=== PATIENT | male | born 1960 | race Caucasian/White ===

== ENCOUNTER 2021-06-22 18:18 | Inpatient (IN) | payer MEDICAID ==
[~2021-06-22] VITALS: Ht 182.9 cm; Wt 96.0 kg
[2021-06-22 18:52] LABS: BASOPHILS # (AUTO) 0.1 X10'3 (0-0.2); BASOPHILS % (AUTO) 0.8 % (0-1); EOSINOPHILS # (AUTO) 0.1 X10'3 (0-0.9); EOSINOPHILS % (AUTO) 0.9 % (0-6); HEMOGLOBIN 11.2 g/dl (14.0-17.9); LYMPHOCYTES # (AUTO) 0.8 X10'3 (1.1-4.8); LYMPHOCYTES % (AUTO) 11.2 % (21-51); MEAN CORPUSCULAR HEMOGLOBIN 28.7 PG (27.0-31.0); MEAN CORPUSCULAR HGB CONC 32.9 g/dL (33.0-36.5); MEAN CORPUSCULAR VOLUME 87.2 FL (78-98); MEAN PLATELET VOLUME 7.7 FL (7.4-10.4); MONOCYTES # (AUTO) 0.5 X10'3 (0-0.9); MONOCYTES % (AUTO) 7.3 % (2-12); NEUTROPHILS # (AUTO) 5.9 X10'3 (1.8-7.7); NEUTROPHILS % (AUTO) 79.8 % (42-75); PLATELET COUNT 227 X10'3 (140-440); RED CELL DISTRIBUTION WIDTH 14.8 % (11.5-14.5); WHITE BLOOD COUNT 7.4 X10'3 (4.5-11.0)
[2021-06-22 19:09] LABS: ALANINE AMINOTRANSFERASE 46 U/L (12-78); ALBUMIN 2.7 G/DL (3.4-5.0); ALBUMIN/GLOBULIN RATIO 0.6 (1.1-1.5); ALKALINE PHOSPHATASE 168 IU/L (46-116); ANION GAP 10 (8-16); ASPARTATE AMINO TRANSFERASE 21 U/L (10-37); BILIRUBIN,TOTAL 0.8 MG/DL (0.1-1.0); BLOOD UREA NITROGEN 10 MG/DL (7-18); BUN/CREATININE RATIO 8.5 (5.4-32.0); CALCIUM 8.7 MG/DL (8.5-10.1); CHLORIDE 102 MMOL/L (99-107); CREATININE 1.18 MG/DL (0.60-1.10); GLUCOSE 152 MG/DL (70-104); POTASSIUM 4.5 MMOL/L (3.5-5.1); SODIUM 138 MMOL/L (135-145); TOTAL CARBON DIOXIDE 26.1 MMOL/L (24-32); TOTAL PROTEIN 7.2 G/DL (6.4-8.2); eGFR 62 ML/MIN
[2021-06-22] MEDS ORDERED: temazepam 15mg capsule PO PRN (21:00)
[2021-06-22] MEDS ORDERED: magnesium hydroxide 30ml (MOM) UD suspension PO PRN (23:45)
[2021-06-22] MEDS ORDERED: mag hydrox/Alum hydrox/simeth 30ml oral suspension PO PRN (23:45)
[2021-06-22] MEDS ORDERED: ondansetron 4mg rapidly disintigrating tab PO PRN (23:45)
[2021-06-22] MEDS ORDERED: bisacodyl 10mg suppository rectal RC PRN (23:45)
[2021-06-22] MEDS ORDERED: acetaminophen 650mg rectal suppository RC PRN (23:45)
[2021-06-22] MEDS ORDERED: HYDROcodone/acetaminophen 5mg/325mg tablet PO PRN (23:45)
[2021-06-22] MEDS ORDERED: ondansetron/PF 4mg/2ml inj IV PRN (23:45)
[2021-06-22] MEDS ORDERED: diphenhydrAMINE 50 mg/ml inj IV PRN (23:45)
[2021-06-22] MEDS ORDERED: acetaminophen 325mg tablet PO PRN ×2 (23:45)
[2021-06-22] MEDS ORDERED: diphenhydrAMINE 25mg capsule PO PRN (23:45)
[2021-06-22] MEDS ORDERED: morphine 2 MG/ML inj. syringe IV PRN ×2 (23:45)
[2021-06-22] MEDS ORDERED: normal saline 1000ml 1,000 ML IV SCH (23:45)
[2021-06-22] MEDS ORDERED: nicotine 21mg patch - 24 hr TD ONE (23:50)
[2021-06-23] MEDS ORDERED: piperacillin/tazo 3.375gm/50ml 50 ML IV SCH
[2021-06-23] MEDS ORDERED: MESSAGE TO PHARMACY PO ONE
[2021-06-23] MEDS ORDERED: glucagon, human recombinant 1mg kit SUBCUT PRN
[2021-06-23] MEDS ORDERED: dextrose 50%-water 50ml dispensing syringe IV PRN ×2
[2021-06-23] MEDS ORDERED: DEXTROSE 15 GM of carb/4 tabs (each vial/BOTTLE has 4 tablets) PO PRN ×2
[2021-06-23 00:12] LABS: HEMOGLOBIN A1C 10.3 % (4.5-6.2)
[2021-06-23 00:19] LABS: MAGNESIUM 1.8 MG/DL (1.5-2.4); PHOSPHORUS 2.9 MG/DL (2.3-4.5)
[2021-06-23 00:39] LABS: APTT 27 SECONDS (22-32)
[2021-06-23 00:48] LABS: C-REACTIVE PROTEIN 6.07 MG/DL (0.0-0.5); CREATINE KINASE 41 U/L (39-308)
[2021-06-23] MEDS ORDERED: aspirin 325mg tablet PO ONE (01:05)
[2021-06-23] MEDS ORDERED: heparin 10,000 units/1 ML INJ IV ONE (01:05)
[2021-06-23 01:10] LABS: URINE AMPHETAMINE SCREEN POSITIVE (Neg); URINE BARBITUATE SCREEN NEGATIVE (Neg); URINE BENZODIAZEPINES SCREEN NEGATIVE (Neg); URINE CANNABINOID SCREEN POSITIVE (Neg); URINE COCAINE SCREEN NEGATIVE (Neg); URINE METHADONE SCREEN NEGATIVE (Neg); URINE OPIATE SCREEN NEGATIVE (Neg); URINE PHENCYCLIDINE SCREEN NEGATIVE (Neg)
[2021-06-23 01:14] LABS: CLARITY,URINE CLEAR (Clear); COLOR,URINE YELLOW (Yellow); GLUCOSE, URINE NEGATIVE (Neg); KETONES,URINE NEGATIVE (Neg); LEUKOCYTE ESTERASE ,URINE NEGATIVE (Neg); NITRITES, URINE NEGATIVE (Neg); OCCULT BLOOD,URINE NEGATIVE (Neg); PROTEIN,URINE NEGATIVE (Neg)
[2021-06-23 01:16] LABS: UA COLLECTION TYPE NON-SPECIFIED
[2021-06-23] MEDS: heparin 25,000 UNIT/250ml bag 250 ML IV SCH ×3 (01:21→22:02)
[2021-06-23 01:55] LABS: BASOPHILS % (AUTO) 0.5 % (0-1); EOSINOPHILS # (AUTO) 0.1 X10'3 (0-0.9); HEMATOCRIT 32.1 % (42.0-52.0); HEMOGLOBIN 10.7 g/dl (14.0-17.9); LYMPHOCYTES # (AUTO) 0.9 X10'3 (1.1-4.8); LYMPHOCYTES % (AUTO) 12.7 % (21-51); MEAN CORPUSCULAR HEMOGLOBIN 29.4 PG (27.0-31.0); MEAN CORPUSCULAR HGB CONC 33.4 g/dL (33.0-36.5); MONOCYTES # (AUTO) 0.6 X10'3 (0-0.9); MONOCYTES % (AUTO) 7.8 % (2-12); NEUTROPHILS # (AUTO) 5.6 X10'3 (1.8-7.7); PLATELET COUNT 214 X10'3 (140-440); RED BLOOD COUNT 3.65 X10'6 (4.70-6.10); RED CELL DISTRIBUTION WIDTH 14.6 % (11.5-14.5); WHITE BLOOD COUNT 7.2 X10'3 (4.5-11.0)
[2021-06-23 02:14] LABS: ALANINE AMINOTRANSFERASE 41 U/L (12-78); ALBUMIN 2.5 G/DL (3.4-5.0); ALBUMIN/GLOBULIN RATIO 0.6 (1.1-1.5); ALKALINE PHOSPHATASE 159 IU/L (46-116); ANION GAP 9 (8-16); ASPARTATE AMINO TRANSFERASE 20 U/L (10-37); BILIRUBIN,TOTAL 0.6 MG/DL (0.1-1.0); BLOOD UREA NITROGEN 12 MG/DL (7-18); CALCIUM 8.5 MG/DL (8.5-10.1); CHLORIDE 102 MMOL/L (99-107); CHOL/HDL RATIO 5.6 (0.00-4.99); CHOLESTEROL 139 MG/DL (0-200); GLUCOSE 185 MG/DL (70-104); HDL CHOLESTEROL 25 MG/DL (35-60); LDL CHOLESTEROL 102 MG/DL (50-100); POTASSIUM 4.4 MMOL/L (3.5-5.1); SODIUM 137 MMOL/L (135-145); TOTAL CARBON DIOXIDE 25.6 MMOL/L (24-32); TOTAL PROTEIN 6.8 G/DL (6.4-8.2); TRIGLYCERIDES 63 MG/DL (20-135); eGFR 61 ML/MIN
[2021-06-23] MEDS ORDERED: GABA300C PO (03:41)
[2021-06-23] MEDS ORDERED: LIRA0.6P2 SQ (03:41)
[2021-06-23] MEDS ORDERED: LANTUS SQ (03:41)
[2021-06-23] MEDS ORDERED: PREG100C PO (03:41)
[2021-06-23] MEDS ORDERED: METF-436 PO (03:41)
[2021-06-23] MEDS: VANCOmycin 1250MG/NS 250ml Bag 250 ML IV SCH ×2 (04:57→20:09)
--- NOTE | 2021-06-23 05:05 | NUR ---
Patient in room ED 2. to be admitted to 3013A, I have received report from Selina and had the opportunity to ask questions and assume patient care.Pt on Heparin drip at 1000Units/hr, for elevated Troponin.
[2021-06-23 05:30] VITALS: BP 124/71
[2021-06-23 06:00] VITALS: BP 122/74
[2021-06-23] MEDS ORDERED: pantoprazole 40mg Tablet.DR PO SCH (07:30)
[2021-06-23] MEDS ORDERED: CLINDAMYCIN 300mg/NS 50ml IVPB 50 ML IV SCH (08:00)
[2021-06-23] MEDS ORDERED: heparin, porcine 5000 units/ml vial SQ SCH (08:00)
[2021-06-23] MEDS ORDERED: atorvastatin 20mg tablet PO SCH (08:00)
[2021-06-23] MEDS: lisinopril 2.5mg tablet PO SCH (09:39)
[2021-06-23] MEDS: aspirin 81mg tab.chew PO SCH (09:39)
[2021-06-23] MEDS: nitroGLYCERIN 0.1mg/hour patch TD SCH (09:40)
[2021-06-23] MEDS: pantoprazole 40mg Tablet.DR PO SCH (09:40)
[2021-06-23] MEDS: docusate sod 100mg capsule PO SCH ×2 (09:41→20:11)
[2021-06-23] MEDS: piperacillin/tazo 3.375gm/50ml 50 ML IV SCH ×2 (09:42→16:27)
--- NOTE | 2021-06-23 10:17 | NUR ---
Patient's bg is 189 but currently NPO for possible procedure, will hold insulin dose. Due for re-check at noon.
[2021-06-23 11:00] VITALS: BP 122/69
[2021-06-23] MEDS: pregabalin 75mg capsule PO SCH ×2 (13:10→20:10)
[2021-06-23] MEDS: pregabalin 25mg capsule PO SCH ×2 (13:10→20:10)
[2021-06-23] MEDS: metoprolol tartrate 25mg tablet PO SCH ×2 (13:11→20:00)
[2021-06-23] MEDS: heparin 10,000 units/1 ML INJ IV PRN ×2 (13:13→20:35)
[2021-06-23] MEDS: insulin Lispro (HumaLOG) vial - multi-dose SQ SCH (13:26)
--- NOTE | 2021-06-23 14:13 | NUR ---
WOUND INFECTION EDUCATION PROVIDED BY WOUND CARE 1. Patient instructed to call their primary doctor, or go the ED immediately if any of the following symptoms occur: * Increased pain in wound * Increase in drainage from the wound * Redness in the skin surrounding the wound * Warmth in the skin surrounding the wound * Bleeding from the wound * Temperature of 101 or greater 2. If any of these occur while in the hospital tell a nurse immediately. Addendum: 06/23/21 at 1414 by Sol Koroma RN Amended: Links added.
[2021-06-23 15:00] VITALS: BP 118/64
[2021-06-23] MEDS: gabapentin 300mg capsule PO SCH (16:29)
--- NOTE | 2021-06-23 16:30 | NUR ---
DM consult: Pt w/ hx DM2, A1c 10.3 per EMR. Pt seen by sports management intern at bedside and provided written and verbal DM education. Pt was receptive to DM education, stating he doesn't follow a special diet at home, however is willing to eat more vegetables. Pt did not have any questions. RD contact information provided. Will continue to follow. Addendum: 06/23/21 at 1630 by Ruby Simpson Roll Changer RD Amended: Links added. Addendum: 06/23/21 at [address] I have reviewed and agree with note by Roll Changer. ESTEE Ramirez
[2021-06-23 18:00] VITALS: BP 99/54
[2021-06-23] MEDS: furosemide 20 MG/2 ML vial IV SCH (20:00)
[2021-06-23] MEDS: insulin glargine (Lantus) pen - multi-dose SQ SCH (21:45)
[2021-06-23 22:00] VITALS: BP 108/71
[2021-06-24] MEDS: piperacillin/tazo 3.375gm/50ml 50 ML IV SCH (00:11)
[2021-06-24] MEDS: gabapentin 300mg capsule PO SCH ×3 (00:11→17:20)
[2021-06-24 02:00] VITALS: BP 145/72
[2021-06-24] MEDS ORDERED: VANCOMYCIN LEVEL IV ONE (02:30)
[2021-06-24 04:01] LABS: ALANINE AMINOTRANSFERASE 35 U/L (12-78); ALBUMIN 2.6 G/DL (3.4-5.0); ALBUMIN/GLOBULIN RATIO 0.7 (1.1-1.5); ALKALINE PHOSPHATASE 169 IU/L (46-116); ANION GAP 12 (8-16); ASPARTATE AMINO TRANSFERASE 16 U/L (10-37); BILIRUBIN,TOTAL 0.8 MG/DL (0.1-1.0); BLOOD UREA NITROGEN 15 MG/DL (7-18); BUN/CREATININE RATIO 10.9 (5.4-32.0); CALCIUM 8.2 MG/DL (8.5-10.1); CHLORIDE 103 MMOL/L (99-107); CREATININE 1.37 MG/DL (0.60-1.10); GLUCOSE 166 MG/DL (70-104); POTASSIUM 4.6 MMOL/L (3.5-5.1); SODIUM 139 MMOL/L (135-145); TOTAL CARBON DIOXIDE 24.3 MMOL/L (24-32); TOTAL PROTEIN 6.5 G/DL (6.4-8.2); VANCOMYCIN,TROUGH 19.3 UG/ML (6.0-14.0); eGFR 52 ML/MIN
[2021-06-24] MEDS: VANCOmycin 1250MG/NS 250ml Bag 250 ML IV SCH (04:09)
[2021-06-24 06:00] VITALS: BP 113/56
[2021-06-24 07:01] LABS: BASOPHILS % (AUTO) 0.5 % (0-1); EOSINOPHILS # (AUTO) 0.1 X10'3 (0-0.9); EOSINOPHILS % (AUTO) 0.7 % (0-6); HEMATOCRIT 31.7 % (42.0-52.0); HEMOGLOBIN 10.5 g/dl (14.0-17.9); LYMPHOCYTES # (AUTO) 1.5 X10'3 (1.1-4.8); LYMPHOCYTES % (AUTO) 18.3 % (21-51); MEAN CORPUSCULAR HEMOGLOBIN 29.3 PG (27.0-31.0); MEAN CORPUSCULAR VOLUME 88.6 FL (78-98); MEAN PLATELET VOLUME 8.5 FL (7.4-10.4); MONOCYTES # (AUTO) 0.6 X10'3 (0-0.9); MONOCYTES % (AUTO) 6.8 % (2-12); NEUTROPHILS % (AUTO) 73.7 % (42-75); PLATELET COUNT 206 X10'3 (140-440); RED BLOOD COUNT 3.57 X10'6 (4.70-6.10); RED CELL DISTRIBUTION WIDTH 14.9 % (11.5-14.5); WHITE BLOOD COUNT 8.1 X10'3 (4.5-11.0)
--- NOTE | 2021-06-24 08:47 | NUR ---
DM consult: Patient's A1c has already been addressed, see below. DM consult: Pt w/ hx DM2, A1c 10.3 per EMR. Pt seen by risk management internship at bedside and provided written and verbal DM education. Pt was receptive to DM education, stating he doesn't follow a special diet at home, however is willing to eat more vegetables. Pt did not have any questions. RD contact information provided. Will continue to follow. Addendum: 06/24/21 at [address] Amended: Links added.
[2021-06-24] MEDS: pregabalin 25mg capsule PO SCH ×3 (09:02→20:56)
[2021-06-24] MEDS: nitroGLYCERIN 0.1mg/hour patch TD SCH (09:02)
[2021-06-24] MEDS: pregabalin 75mg capsule PO SCH ×3 (09:02→20:56)
[2021-06-24] MEDS: metroNIDAZOLE 500mg tablet PO SCH ×2 (09:03→17:20)
[2021-06-24] MEDS: docusate sod 100mg capsule PO SCH ×2 (09:03→20:57)
[2021-06-24] MEDS: aspirin 81mg tab.chew PO SCH (09:03)
[2021-06-24] MEDS: lisinopril 2.5mg tablet PO SCH (09:03)
[2021-06-24] MEDS: pantoprazole 40mg Tablet.DR PO SCH (09:03)
[2021-06-24] MEDS: apixaban 5mg tablet PO SCH ×2 (09:03→20:57)
[2021-06-24] MEDS: clopidogrel 75mg tablet PO SCH (09:03)
[2021-06-24] MEDS: atorvastatin 20mg tablet PO SCH (09:04)
[2021-06-24] MEDS: furosemide 20 MG/2 ML vial IV SCH ×2 (09:04→20:00)
[2021-06-24] MEDS: metoprolol tartrate 25mg tablet PO SCH ×2 (09:04→20:00)
[2021-06-24] MEDS: HYDROcodone/acetaminophen 10/325mg tab PO PRN (10:30)
[2021-06-24] MEDS: levoFLOXACIN 500mg tablet PO SCH (10:30)
[2021-06-24] MEDS: insulin Lispro (HumaLOG) vial - multi-dose SQ SCH (14:21)
[2021-06-24 15:00] VITALS: BP 82/53
[2021-06-24 19:41] VITALS: BP 93/53
[2021-06-24] MEDS: insulin glargine (Lantus) pen - multi-dose SQ SCH (21:28)
[2021-06-24 22:00] VITALS: BP 116/68
[2021-06-25] MEDS: gabapentin 300mg capsule PO SCH ×4 (00:32→23:26)
[2021-06-25] MEDS: metroNIDAZOLE 500mg tablet PO SCH ×4 (00:32→23:26)
[2021-06-25 02:00] VITALS: BP 109/66
[2021-06-25 06:00] VITALS: BP 115/71
[2021-06-25 07:38] LABS: BASOPHILS % (AUTO) 0.4 % (0-1); EOSINOPHILS # (AUTO) 0.1 X10'3 (0-0.9); EOSINOPHILS % (AUTO) 0.7 % (0-6); HEMATOCRIT 33.3 % (42.0-52.0); MEAN CORPUSCULAR HEMOGLOBIN 28.7 PG (27.0-31.0); MEAN CORPUSCULAR HGB CONC 33.1 g/dL (33.0-36.5); MEAN CORPUSCULAR VOLUME 86.8 FL (78-98); MEAN PLATELET VOLUME 7.9 FL (7.4-10.4); MONOCYTES # (AUTO) 0.7 X10'3 (0-0.9); MONOCYTES % (AUTO) 7.8 % (2-12); NEUTROPHILS # (AUTO) 6.7 X10'3 (1.8-7.7); NEUTROPHILS % (AUTO) 79.1 % (42-75); PLATELET COUNT 227 X10'3 (140-440); RED BLOOD COUNT 3.84 X10'6 (4.70-6.10); RED CELL DISTRIBUTION WIDTH 14.6 % (11.5-14.5); WHITE BLOOD COUNT 8.5 X10'3 (4.5-11.0)
[2021-06-25 08:18] LABS: ALANINE AMINOTRANSFERASE 25 U/L (12-78); ALBUMIN 2.3 G/DL (3.4-5.0); ALBUMIN/GLOBULIN RATIO 0.5 (1.1-1.5); ALKALINE PHOSPHATASE 141 IU/L (46-116); ANION GAP 11 (8-16); ASPARTATE AMINO TRANSFERASE 13 U/L (10-37); BILIRUBIN,TOTAL 0.7 MG/DL (0.1-1.0); BLOOD UREA NITROGEN 17 MG/DL (7-18); BUN/CREATININE RATIO 13.5 (5.4-32.0); CALCIUM 8.7 MG/DL (8.5-10.1); CHLORIDE 104 MMOL/L (99-107); CREATININE 1.26 MG/DL (0.60-1.10); GLUCOSE 94 MG/DL (70-104); SODIUM 140 MMOL/L (135-145); TOTAL CARBON DIOXIDE 25.1 MMOL/L (24-32); TOTAL PROTEIN 6.8 G/DL (6.4-8.2); eGFR 58 ML/MIN
[2021-06-25] MEDS: furosemide 20 MG/2 ML vial IV SCH ×2 (08:28→20:00)
[2021-06-25] MEDS: nitroGLYCERIN 0.1mg/hour patch TD SCH (08:28)
[2021-06-25] MEDS: atorvastatin 20mg tablet PO SCH (08:29)
[2021-06-25] MEDS: lisinopril 2.5mg tablet PO SCH (08:29)
[2021-06-25] MEDS: aspirin 81mg tab.chew PO SCH (08:29)
[2021-06-25] MEDS: metoprolol tartrate 25mg tablet PO SCH ×2 (08:29→20:00)
[2021-06-25] MEDS: apixaban 5mg tablet PO SCH ×2 (08:30→12:29)
[2021-06-25] MEDS: clopidogrel 75mg tablet PO SCH (08:30)
[2021-06-25] MEDS: pregabalin 25mg capsule PO SCH ×3 (08:30→20:52)
[2021-06-25] MEDS: pregabalin 75mg capsule PO SCH ×3 (08:30→20:52)
[2021-06-25] MEDS: pantoprazole 40mg Tablet.DR PO SCH (08:30)
[2021-06-25] MEDS: docusate sod 100mg capsule PO SCH ×2 (08:30→20:51)
[2021-06-25] MEDS: insulin Lispro (HumaLOG) vial - multi-dose SQ SCH ×2 (08:44→14:06)
[2021-06-25] MEDS ORDERED: ASPI81TA53 PO (09:40)
[2021-06-25] MEDS ORDERED: APIX5TAB3 PO (09:40)
[2021-06-25] MEDS ORDERED: LOP25T PO (09:40)
[2021-06-25] MEDS ORDERED: ATOR20TA66 PO (09:40)
[2021-06-25] MEDS ORDERED: FURO-150 PO (09:40)
[2021-06-25] MEDS ORDERED: CLOP75TA34 PO (09:40)
[2021-06-25] MEDS ORDERED: LISI2.5T14 PO (09:40)
[2021-06-25] MEDS ORDERED: HYDR-3972 PO (09:40)
[2021-06-25] MEDS ORDERED: METR-159 PO (09:40)
[2021-06-25] MEDS ORDERED: LEVO500T90 PO (09:40)
[2021-06-25 11:00] VITALS: BP 108/62
[2021-06-25] MEDS: levoFLOXACIN 500mg tablet PO SCH (12:47)
[2021-06-25] MEDS: HYDROcodone/acetaminophen 10/325mg tab PO PRN (14:14)
[2021-06-25 15:00] VITALS: BP 106/68
--- NOTE | 2021-06-25 17:30 | NUR ---
Mr Kellogg has been assessed as indicated. He was successfully treated for pain x1 this shift. He had a kika neuro consult this shift. a condom cath was placed and he also had periods of incontinence of urine. He was visited by his and hi daughter also called today. He is presently resting quietly Addendum: 06/25/21 at 1907 by Trang Lamar RN a conom cath was not placed for Mr Kellogg. he has elected to have surgery to right Right great toe tomorrow.
[2021-06-25 18:00] VITALS: BP 95/52
--- NOTE | 2021-06-25 18:15 | NUR ---
Problems reprioritized. Patient report given, questions answered & plan of care reviewed with MYRNA .
[2021-06-25] MEDS: insulin glargine (Lantus) pen - multi-dose SQ SCH (21:33)
[2021-06-26 00:06] VITALS: BP 109/59
[2021-06-26 02:00] VITALS: BP 118/65
[2021-06-26 06:00] VITALS: BP 108/68
[2021-06-26 06:24] LABS: BASOPHILS % (AUTO) 0.2 % (0-1); EOSINOPHILS # (AUTO) 0.1 X10'3 (0-0.9); EOSINOPHILS % (AUTO) 0.7 % (0-6); HEMATOCRIT 33.2 % (42.0-52.0); HEMOGLOBIN 10.9 g/dl (14.0-17.9); LYMPHOCYTES % (AUTO) 12.8 % (21-51); MEAN CORPUSCULAR HEMOGLOBIN 28.5 PG (27.0-31.0); MEAN CORPUSCULAR HGB CONC 32.9 g/dL (33.0-36.5); MEAN CORPUSCULAR VOLUME 86.5 FL (78-98); MEAN PLATELET VOLUME 7.6 FL (7.4-10.4); MONOCYTES # (AUTO) 0.7 X10'3 (0-0.9); MONOCYTES % (AUTO) 8.9 % (2-12); NEUTROPHILS # (AUTO) 6.1 X10'3 (1.8-7.7); NEUTROPHILS % (AUTO) 77.4 % (42-75); PLATELET COUNT 226 X10'3 (140-440); RED BLOOD COUNT 3.83 X10'6 (4.70-6.10); RED CELL DISTRIBUTION WIDTH 14.9 % (11.5-14.5); WHITE BLOOD COUNT 7.9 X10'3 (4.5-11.0)
[2021-06-26 06:44] LABS: ALANINE AMINOTRANSFERASE 22 U/L (12-78); ALBUMIN 2.3 G/DL (3.4-5.0); ALBUMIN/GLOBULIN RATIO 0.5 (1.1-1.5); ALKALINE PHOSPHATASE 150 IU/L (46-116); ANION GAP 12 (8-16); ASPARTATE AMINO TRANSFERASE 17 U/L (10-37); BILIRUBIN,TOTAL 0.6 MG/DL (0.1-1.0); BLOOD UREA NITROGEN 16 MG/DL (7-18); CALCIUM 8.4 MG/DL (8.5-10.1); CHLORIDE 102 MMOL/L (99-107); CREATININE 1.23 MG/DL (0.60-1.10); GLUCOSE 140 MG/DL (70-104); POTASSIUM 3.7 MMOL/L (3.5-5.1); SODIUM 139 MMOL/L (135-145); TOTAL CARBON DIOXIDE 24.7 MMOL/L (24-32); TOTAL PROTEIN 6.8 G/DL (6.4-8.2); eGFR 59 ML/MIN
[2021-06-26] MEDS: pantoprazole 40mg Tablet.DR PO SCH (07:30)
[2021-06-26] MEDS: aspirin 81mg tab.chew PO SCH (08:00)
[2021-06-26] MEDS: clopidogrel 75mg tablet PO SCH (08:00)
[2021-06-26] MEDS: apixaban 5mg tablet PO SCH (08:00)
[2021-06-26] MEDS: pregabalin 25mg capsule PO SCH ×2 (08:54→16:09)
[2021-06-26] MEDS: atorvastatin 20mg tablet PO SCH (08:55)
[2021-06-26] MEDS: pregabalin 75mg capsule PO SCH ×2 (08:55→16:09)
[2021-06-26] MEDS: gabapentin 300mg capsule PO SCH ×2 (08:56→16:05)
[2021-06-26] MEDS: metoprolol tartrate 25mg tablet PO SCH (08:59)
[2021-06-26] MEDS: docusate sod 100mg capsule PO SCH (08:59)
[2021-06-26] MEDS: lisinopril 2.5mg tablet PO SCH (08:59)
[2021-06-26] MEDS: metroNIDAZOLE 500mg tablet PO SCH ×2 (09:00→16:06)
[2021-06-26] MEDS: furosemide 20 MG/2 ML vial IV SCH (09:01)
--- NOTE | 2021-06-26 10:57 | NUR ---
Supervised Nasal Swab by SN
[2021-06-26 11:00] VITALS: BP 109/57
--- NOTE | 2021-06-26 11:40 | NUR ---
PAGER ID: [phone] MESSAGE: [id number] Surgery cancelled..needs to be seen out patient. I am trying to set up the appointment before he leaves. Ana is helping facilitate it. Jing [phone]
--- NOTE | 2021-06-26 12:54 | NUR ---
Met with patient in regards to substance use and to see if patient was interested in treatment options. Patient declined any resources at this time.
[2021-06-26] MEDS: HYDROcodone/acetaminophen 10/325mg tab PO PRN (16:05)
[2021-06-26] MEDS: levoFLOXACIN 500mg tablet PO SCH (16:09)
--- NOTE | 2021-06-26 16:15 | NUR ---
Mr Kellogg is being DC to home. IV access was removed. He did not have his great toe amputated due to having breakfast. OR was unable to reschedule him today or tomorrow. He will be referred to Dr Britt's office via the wound clinic here at [facility] so that he can be rescheduled for surgery. he has an appointment 06/30/2021 at 10am. he is aware. His daughter is aware. DC instructions were reviewed with him, he expressed his understanding of the instructions and signed the documentation to indicate his agreement and understanding. New RX were sent to the pharmacy at [facility] in [place]. He was given a hard RX for pain medication. he was escorted to the front door by staff in a to be driven home by his daughter Dior in a private vehicle
[2021-06-29] MEDS ORDERED: HYDR-3965 PO (10:59)
== END 2021-06-26 16:10 | disposition home or self-care (01) | DRG 344 ==
LOC: ER 18:20 → ED HOLD 23:47 → UNDOADMIN 23:47 → ED HOLD 06-23 01:41 → PCU 3S 06-23 05:43 → ED HOLD 06-23 05:43
PROVIDERS: ADMIT Family Medicine; ATTEND Internal Medicine
DX: E11.69 Type 2 diabetes mellitus with other specified complication (principal); M86.8X7 Other osteomyelitis, ankle and foot; I21.4 Non-ST elevation (NSTEMI) myocardial infarction; I50.43 Acute on chronic combined systolic (congestive) and diastolic (congestive) heart failure; E43 Unspecified severe protein-calorie malnutrition; A48.0 Gas gangrene; E11.52 Type 2 diabetes mellitus with diabetic peripheral angiopathy with gangrene; I27.20 Pulmonary hypertension, unspecified; N17.9 Acute kidney failure, unspecified; L03.115 Cellulitis of right lower limb; I48.0 Paroxysmal atrial fibrillation; E11.65 Type 2 diabetes mellitus with hyperglycemia; F12.129 Cannabis abuse with intoxication, unspecified; F15.10 Other stimulant abuse, uncomplicated; F17.210 Nicotine dependence, cigarettes, uncomplicated; I11.0 Hypertensive heart disease with heart failure; Z79.82 Long term (current) use of aspirin; Z79.899 Other long term (current) drug therapy; Z86.718 Personal history of other venous thrombosis and embolism; Z71.51 Drug abuse counseling and surveillance of drug abuser; Z71.6 Tobacco abuse counseling; Z79.4 Long term (current) use of insulin; Z68.28 Body mass index [BMI] 28.0-28.9, adult
CPT/HCPCS: 36415; 70450; 71045; 73700; 80053; 80061; 80202; 80305; 81003; 82550; 82948; 83036; 83605; 83735; 83880; 84100; 84145; 84443; 84484; 85025; 85610; 85651; 85730; 86140; 87040; 87081; 93005; 93306; 93922; 97116; 97161; 97530; 99285; G0378; J1644; J1815; J1940; J2543; J3370; J7030